=== PATIENT | female | born 1985 | race Native Hawaiian/Other Pacific Islander ===

== ENCOUNTER 2018-11-26 08:47 | Emergency (ER) | payer OTHER ==
[~2018-11-26] VITALS: Ht 160 cm; Wt 69.2 kg
[2018-11-26] MEDS ORDERED: NS 1,000 ML IV ONE (09:30)
[2018-11-26] MEDS ORDERED: ONDANSETRON 4MG/2ML VIAL (J2405) IV ONE (09:30)
[2018-11-26] MEDS ORDERED: KETOROLAC 30 MG/ML VIAL (J1885) IV ONE (09:30)
[2018-11-26 09:47] LABS: BASO % 0.7 % (0.0-1.0); EOS # 0.1 10^3/uL (0.0-0.50); EOS % 1.6 % (0.0-3.0); HEMOGLOBIN 13.1 g/dl (12.0-15.5); LYMPH # 0.9 10^3/uL (1.5-4.5); MEAN CORPUSCULAR HEMOGLOBIN 29.6 pg (27.0-33.0); MEAN CORPUSCULAR HGB CONC 33.6 g/dl (32.0-36.5); MEAN CORPUSCULAR VOLUME 88.2 fl (80.0-96.0); MONO # 0.3 10^3/uL (0.0-0.8); MONO % 7.5 % (0.0-5.0); NEUTROPHILS % 69.2 % (36.0-66.0); PLATELET COUNT, AUTOMATED 335 10^3/uL (150-450); RED BLOOD COUNT 4.42 10^6/uL (4.00-5.40); WHITE BLOOD COUNT 4.3 10^3/uL (4.0-10.0)
[2018-11-26 10:09] LABS: ALBUMIN 3.7 GM/DL (3.2-5.2); ALT/SGPT 30 U/L (12-78); AMYLASE 75 U/L (25-115); BILIRUBIN,TOTAL 0.5 MG/DL (0.2-1.0); BLOOD UREA NITROGEN 10 MG/DL (7-18); CARBON DIOXIDE LEVEL 24 MEQ/L (21-32); CHLORIDE LEVEL 110 MEQ/L (98-107); CREATININE FOR GFR 0.76 MG/DL (0.55-1.30); GLOMERULAR FILTRATION RATE > 60.0 (>60); GLUCOSE, FASTING 97 MG/DL (70-100); LIPASE 226 U/L (73-393); POTASSIUM SERUM 3.4 MEQ/L (3.5-5.1); SODIUM LEVEL 139 MEQ/L (136-145); TOTAL PROTEIN 7.4 GM/DL (6.4-8.2)
[2018-11-26] MEDS ORDERED: METOCLOPRAMIDE INJ 10MG/2ML VIAL (J2765) IV ONE (10:45)
[2018-11-26] MEDS ORDERED: PANTOPRAZOLE 40MG TAB (PROTONIX) PO ONE (10:45)
[2018-11-26] MEDS ORDERED: DICY10CA13 PO (11:09)
[2018-11-26] MEDS ORDERED: ZOFR4TAB16 PO (11:09)
[2018-11-26] MEDS ORDERED: PROT1TAB2 PO (11:09)
[2018-11-26] MEDS ORDERED: REGL10TA6 PO (11:09)
[2018-11-26 11:14] VITALS: BP 110/54
--- NOTE | 2018-11-26 15:51 | REP ---
Acute abdominal series: Three views. History: Diffuse abdominal pain. Findings: Upright chest radiograph is normal. There is no evidence of infiltrate or free subdiaphragmatic air. Supine and erect views of the abdomen show an unremarkable bowel gas pattern. No mass organomegaly is seen. No pathologic calcification is seen. Impression: Unremarkable acute abdominal series. Electronically Signed by Kyle Modi MD 11/26/2018 09:49 A
== END 2018-11-26 11:22 | disposition home or self-care (01) ==
LOC: M ED 08:47
DX: R11.2 Nausea with vomiting, unspecified (principal); R19.7 Diarrhea, unspecified; R10.84 Generalized abdominal pain
CPT/HCPCS: 74021; 80053; 81001; 82150; 83690; 85025; 96374; 96375; 99284; J1885; J2405; J2765

== ENCOUNTER → 2019-06-02 | Outpatient (REF) | payer OTHER ==
[~2019-06-02] MED LIST: DICY10CA13 PO; PROT1TAB2 PO; REGL10TA6 PO; ZOFR4TAB16 PO
== END ==
LOC: M SFHCLERA 17:53
PROVIDERS: ATTEND Nurse Practitioner Family
DX: J02.9 Acute pharyngitis, unspecified (principal)